=== PATIENT | male | born 1935 | race Two or more races ===

== ENCOUNTER 2017-04-26 11:32 | Inpatient (IN) | payer MEDICARE, MEDICAID ==
[~2017-04-26] VITALS: Ht 172.7 cm; Wt 77.1 kg
[2017-04-26] MEDS ORDERED: Famotidine 20 MG/ 2ML VIAL IVP ONE (11:45)
[2017-04-26 11:54] LABS: BASOPHILS % (AUTO) 1.5 % (0.0-2.0); EOSINOPHILS % (AUTO) 2.1 % (0.0-3.0); LYMPHOCYTES % (AUTO) 17.5 % (20.0-45.0); MEAN CORPUSCULAR HGB CONC 33.6 G/DL (32.0-36.0); MEAN CORPUSCULAR VOLUME 92 FL (80-99); MEAN PLATELET VOLUME 7.7 FL (6.5-10.1); PLATELET COUNT 238 K/UL (150-450); RED BLOOD COUNT 3.84 M/UL (4.70-6.10); RED CELL DISTRIBUTION WIDTH 12.6 % (11.6-14.8); WHITE BLOOD COUNT 5.9 K/UL (4.8-10.8)
[2017-04-26 12:10] LABS: ALANINE AMINOTRANSFERASE 10 U/L (3-41); ALBUMIN/GLOBULIN RATIO 1.3 (1.0-2.7); ANION GAP 14 (5-15); ASPARTATE AMINO TRANSFERASE 16 U/L (5-40); CALCIUM 8.7 mg/dL (8.6-10.2); CARBON DIOXIDE 22 mEQ/L (20-30); CHLORIDE 105 mEQ/L (98-107); CREATININE 1.1 mg/dL (0.7-1.2); HEMOLYSIS 2; LIPASE 15 U/L (< 60); POTASSIUM 3.7 mEQ/L (3.4-4.9); SODIUM 141 mEQ/L (135-145); TOTAL PROTEIN 6.5 g/dL (6.6-8.7); TROPONIN I < 0.30 ng/mL (<=0.30)
[2017-04-26 12:20] LABS: CKMB 3.4 ng/mL (< 6.7)
[2017-04-26 12:45] VITALS: BP 105/52
[2017-04-26] MEDS ORDERED: [UNRECOGNIZED DRUG - REMARK] (12:52)
[2017-04-26] MEDS ORDERED: [UNRECOGNIZED DRUG - REMARK] (12:52)
--- NOTE | 2017-04-26 12:54 | Diagnostic Imaging Report ---
Indication: Chest pain Technique: One view of the chest Comparison: none Findings: Lungs and pleural spaces are clear. Heart size is upper limits normal. Aorta is tortuous and calcified. 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 Consider sonography for better characterization
--- NOTE | 2017-04-26 13:57 | Emergency Room Report ---
History of Present Illness General Chief Complaint: Vomiting Source: EMS Present Illness HPI 81-year-old male presents ED for evaluation. EMS patient was found on bus bench vomiting. Patient states he has history of diabetes and to his medication today. Patient ate something and shortly after the vomiting started. Patient is bradycardic. Patient states he has history of high blood pressure and diabetes but does not know at medications he takes. Denies chest pain. Denies fevers chills. No other aggravating relieving factors. Denies any other systems symptoms Allergies: Coded Allergies: No Known Allergies (Unverified , 04/26/17) Patient History Past Medical History: DM Past Surgical History: none Pertinent Family History: none Social History: Denies: smoking, alcohol use, drug use Immunizations: UTD Reviewed Nursing Documentation: PMH: Agreed, PSxH: Agreed Nursing Documentation-PMH Hx Diabetes: Yes Review of Systems All Other Systems: negative except mentioned in HPI Physical Exam Vital Signs Date Time Temp Pulse Resp B/P (MAP) Pulse Ox O2 Delivery O2 Flow Rate FiO2 04/26/17 11:42 97.7 54 18 95/48 99 Room Air Sp02 EP Interpretation: reviewed, normal General Appearance: no apparent distress, alert, GCS 15, non-toxic Head: normocephalic, atraumatic Eyes: bilateral eye normal inspection, bilateral eye PERRL ENT: hearing grossly normal, normal pharynx, no angioedema, normal voice Neck: full range of motion, supple/symm/no masses Respiratory: chest non-tender, lungs clear, normal breath sounds, speaking full sentences Cardiovascular #1: no edema, bradycardia Cardiovascular #2: 2+ carotid (R), 2+ carotid (L), 2+ radial (R), 2+ radial (L) , 2+ dorsalis pedis (R), 2+ dorsalis pedis (L) Gastrointestinal: normal bowel sounds, non tender, soft, non-distended, no guarding, no rebound Rectal: deferred Genitourinary: normal inspection, no CVA tenderness Musculoskeletal: back normal, gait/station normal, normal range of motion, non- tender Neurologic: alert, oriented x3, responsive, motor strength/tone normal, sensory intact, speech normal Psychiatric: judgement/insight normal, memory normal, mood/affect normal, no suicidal/homicidal ideation Reflexes: 3+ bicep (R), 3+ bicep (L), 3+ tricep (R), 3+ tricep (L), 3+ knee (R) , 3+ knee (L) Skin: normal color, no rash, warm/dry, well hydrated Lymphatic: no adenopathy Medical Decision Making Diagnostic Impression: Primary Impression: Bradycardia Additional Impression: Vomiting Qualified Codes: R11.2 - Nausea with vomiting, unspecified ER Course Hospital Course 81-year-old male presents ED complaining of vomiting, bradycardia Differential diagnoses include: ME/unstable angina, arryhtmia, hyperkalemia Clinical course Patient placed on stretcher. on cardiac cath technician. After initial history and physical I ordered labs, EKG, chest x-ray, ivfs labs reviewed- no leukocytosis, hb/hct stable, electrolytes ok, trop negative EKG - 1st degree av block with bradycardia Chest x-ray- unremarkable On cardiac cath technician patient's heart rate went as low as the 40s. Patient doesnt know what medications he takes. Blood pressure remained stable Case discussed with Dr. Francis and he agreed to accept the patient to his service for further care and support I. I feel this is a highly complex case requiring extensive working including EKG/Rhythm strip, Xray/CT/US, Blood/urine lab work, repeat exams while in ED, and administration of strong opiates/narcotics for pain control, admission to hospital or close patient follow up. Diagnosis - bradycardia, vomtiing admitted to telemetry in serious condition Labs Test 04/26/17 11:40 White Blood Count 5.9 K/UL (4.8-10.8) Red Blood Count 3.84 M/UL (4.70-6.10) Hemoglobin 11.9 G/DL (14.2-18.0) Hematocrit 35.5 % (42.0-52.0) Mean Corpuscular Volume 92 FL (80-99) Mean Corpuscular Hemoglobin 31.0 PG (27.0-31.0) Mean Corpuscular Hemoglobin Concent 33.6 G/DL (32.0-36.0) Red Cell Distribution Width 12.6 % (11.6-14.8) Platelet Count 238 K/UL (150-450) Mean Platelet Volume 7.7 FL (6.5-10.1) Neutrophils (%) (Auto) 72.0 % (45.0-75.0) Lymphocytes (%) (Auto) 17.5 % (20.0-45.0) Monocytes (%) (Auto) 7.0 % (1.0-10.0) Eosinophils (%) (Auto) 2.1 % (0.0-3.0) Basophils (%) (Auto) 1.5 % (0.0-2.0) Sodium Level 141 mEQ/L (135-145) Potassium Level 3.7 mEQ/L (3.4-4.9) Chloride Level 105 mEQ/L (98-107) Carbon Dioxide Level 22 mEQ/L (20-30) Anion Gap 14 (5-15) Blood Urea Nitrogen 11 mg/dL (7-23) Creatinine 1.1 mg/dL (0.7-1.2) Estimat Glomerular Filtration Rate mL/min (>60) Glucose Level 256 mg/dL (74-106) Calcium Level 8.7 mg/dL (8.6-10.2) Total Bilirubin 0.6 mg/dL (0.0-1.2) Aspartate Amino Transf (AST/SGOT) 16 U/L (5-40) Alanine Aminotransferase (ALT/SGPT) 10 U/L (3-41) Alkaline Phosphatase 71 U/L (40-129) Total Creatine Kinase 106 U/L (38-174) Creatine Kinase MB 3.4 ng/mL (< 6.7) Creatine Kinase MB Relative Index 3.2 Troponin I < 0.30 ng/mL (<=0.30) Total Protein 6.5 g/dL (6.6-8.7) Albumin 3.7 g/dL (3.5-5.2) Globulin 2.8 g/dL Albumin/Globulin Ratio 1.3 (1.0-2.7) Lipase 15 U/L (< 60) EKG Diagnostic Results Rate: bradycardiac Rhythm: other - 1st degree av block ASA given to the pt in ED: No Rhythm Strip Diag. Results EP Interpretation: yes Rhythm: no PVC's, no ectopy Chest X-Ray Diagnostic Results Chest X-Ray Diagnostic Results : Chest X-Ray Ordered: Yes # of Views/Limited/Complete: 1 View Indication: Other - vomiting EP Interpretation: Yes Interpretation: no consolidation, no effusion, no pneumothorax, no acute cardiopulmonary disease Impression: No acute disease Interpreting ER Provider: Electronically signed by Collins You MD Last Vital Signs Date Time Temp Pulse Resp B/P (MAP) Pulse Ox O2 Delivery O2 Flow Rate FiO2 04/26/17 12:45 97.7 51 18 105/52 99 Room Air Status: improved Disposition: ADMITTED INPATIENT Condition: Serious Referrals: NOT CHOSEN IPA/,REFERRING (PCP) COLLINS YOU M.D. Apr 26, 2017 13:57
[2017-04-26 14:52] VITALS: BP 120/59
[2017-04-26] MEDS ORDERED: NKM (14:53)
--- NOTE | 2017-04-26 17:51 | History & Physical ---
History and Physical History & Physicial 81-year-old male presents for admission. patient was found on the bus bench altered and vomiting. Patient states he has history of diabetes but unclear if taking his medications. Patient also noted to be bradycardic. Patient states he has history of high blood pressure and diabetes but does not know his medications and dosing. No other aggravating relieving factors. Denies any other concerns. Patient without trauma. Allergies: No Known Allergies (Unverified , 04/26/17) Past Medical History: DM, hypertension Past Surgical History: none Pertinent Family History: none Social History: Denies: smoking, alcohol use, drug use, not currently working Reviewed of systems: otherwise negative Physical Exam 120/59 52 97.4 14 WDWN NAD clear breath sounds bilaterally without rhonchi or wheeze [id number] without MRG NABS nontender no HSM no CCE nonfocal Laboratory Tests Test 04/26/17 11:40 White Blood Count 5.9 K/UL (4.8-10.8) Red Blood Count 3.84 M/UL (4.70-6.10) L Hemoglobin 11.9 G/DL (14.2-18.0) L Hematocrit 35.5 % (42.0-52.0) L Mean Corpuscular Volume 92 FL (80-99) Mean Corpuscular Hemoglobin 31.0 PG (27.0-31.0) Mean Corpuscular Hemoglobin Concent 33.6 G/DL (32.0-36.0) Red Cell Distribution Width 12.6 % (11.6-14.8) Platelet Count 238 K/UL (150-450) Mean Platelet Volume 7.7 FL (6.5-10.1) Neutrophils (%) (Auto) 72.0 % (45.0-75.0) Lymphocytes (%) (Auto) 17.5 % (20.0-45.0) L Monocytes (%) (Auto) 7.0 % (1.0-10.0) Eosinophils (%) (Auto) 2.1 % (0.0-3.0) Basophils (%) (Auto) 1.5 % (0.0-2.0) Sodium Level 141 mEQ/L (135-145) Potassium Level 3.7 mEQ/L (3.4-4.9) Chloride Level 105 mEQ/L (98-107) Carbon Dioxide Level 22 mEQ/L (20-30) Anion Gap 14 (5-15) Blood Urea Nitrogen 11 mg/dL (7-23) Creatinine 1.1 mg/dL (0.7-1.2) Estimat Glomerular Filtration Rate mL/min (>60) Glucose Level 256 mg/dL (74-106) H Calcium Level 8.7 mg/dL (8.6-10.2) Total Bilirubin 0.6 mg/dL (0.0-1.2) Aspartate Amino Transf (AST/SGOT) 16 U/L (5-40) Alanine Aminotransferase (ALT/SGPT) 10 U/L (3-41) Alkaline Phosphatase 71 U/L (40-129) Total Creatine Kinase 106 U/L (38-174) Creatine Kinase MB 3.4 ng/mL (< 6.7) Creatine Kinase MB Relative Index 3.2 Troponin I < 0.30 ng/mL (<=0.30) Total Protein 6.5 g/dL (6.6-8.7) L Albumin 3.7 g/dL (3.5-5.2) Globulin 2.8 g/dL Albumin/Globulin Ratio 1.3 (1.0-2.7) Lipase 15 U/L (< 60) IMPRESSION Dizziness bradycardia possible cardiomyopathy possible cardiac disease vomiting possible gastroenteritis diabetes possible gastroparesis PLAN IV hydration zofran sliding scale follow up labs, ecg, echo gi evaluation PT evaluation impression, plan, and exam edited and reviewed in detail care discussed with JASE LLAMAS Apr 26, 2017 17:51
[2017-04-26 20:02] VITALS: BP 142/74
[2017-04-26] MEDS: NovoLOG Insulin Flexpen SUBQ SCH (20:52)
[2017-04-26] MEDS ORDERED: Zolpidem 5mg tab ORAL PRN (21:00)
[2017-04-26] MEDS ORDERED: Heparin 5000 units/ml inj SUBQ SCH (21:00)
[2017-04-27 00:35] VITALS: BP 144/61
[2017-04-27 04:00] VITALS: BP 140/65
[2017-04-27] MEDS: NovoLOG Insulin Flexpen SUBQ SCH ×4 (06:36→21:12)
[2017-04-27 07:48] LABS: BASOPHILS % (AUTO) 0.9 % (0.0-2.0); EOSINOPHILS % (AUTO) 2.7 % (0.0-3.0); LYMPHOCYTES % (AUTO) 24.9 % (20.0-45.0); MEAN CORPUSCULAR HEMOGLOBIN 29.5 PG (27.0-31.0); MEAN CORPUSCULAR HGB CONC 31.8 G/DL (32.0-36.0); MEAN CORPUSCULAR VOLUME 93 FL (80-99); MEAN PLATELET VOLUME 7.7 FL (6.5-10.1); MONOCYTES % (AUTO) 7.3 % (1.0-10.0); NEUTROPHILS % (AUTO) 64.1 % (45.0-75.0); PLATELET COUNT 227 K/UL (150-450); RED BLOOD COUNT 4.54 M/UL (4.70-6.10); RED CELL DISTRIBUTION WIDTH 12.7 % (11.6-14.8); WHITE BLOOD COUNT 5.7 K/UL (4.8-10.8)
[2017-04-27 08:07] LABS: ANION GAP 12 (5-15); CALCIUM 9.2 mg/dL (8.6-10.2); CARBON DIOXIDE 24 mEQ/L (20-30); CHLORIDE 109 mEQ/L (98-107); CREATININE 0.9 mg/dL (0.7-1.2); HEMOLYSIS 5; POTASSIUM 3.7 mEQ/L (3.4-4.9); SODIUM 145 mEQ/L (135-145)
[2017-04-27 08:39] VITALS: BP 138/55
[2017-04-27 09:45] LABS: APPEARANCE,URINE SLIGHTLY CLOUDY; KETONES,URINE NEGATIVE (NEGATIVE); LEUKOCYTE ESTERASE ,URINE 1+ (NEGATIVE); NITRITE,URINE NEGATIVE (NEGATIVE); PH,URINE 8 (4.5-8.0); PROTEIN,URINE NEGATIVE (NEGATIVE); UROBILINOGEN,URINE NORMAL MG/DL (0.0-1.0)
[2017-04-27 10:02] LABS: BACTERIA,URINE FEW /HPF; RBC,URINE 60-80 /HPF (0 - 0); SQUAMOUS EPITHELIAL CELL,UR OCCASIONAL /LPF (NONE/OCC); WBC,URINE 0-2 /HPF (0 - 0)
[2017-04-27 12:00] VITALS: BP 136/77
--- NOTE | 2017-04-27 12:24 | General Progress Note ---
Assessment/Plan Assessment/Plan IMPRESSION Dizziness bradycardia possible cardiomyopathy possible cardiac disease vomiting possible gastroenteritis diabetes possible gastroparesis PLAN IV hydration zofran sliding scale follow up labs, ecg, echo gi evaluation called PT evaluation dc planning in am if stable impression, plan, and exam edited and reviewed in detail care discussed with RN Subjective Allergies: Coded Allergies: No Known Allergies (Unverified , 04/26/17) Subjective care noted and reviewed stable no distress Objective Last 24 Hour Vital Signs Date Time Temp Pulse Resp B/P (MAP) Pulse Ox O2 Delivery O2 Flow Rate FiO2 04/27/17 08:39 98.1 60 20 138/55 100 Room Air 04/27/17 08:00 58 04/27/17 04:00 52 04/27/17 04:00 97.0 53 21 140/65 98 Room Air 04/27/17 00:35 97.5 53 20 144/61 99 Room Air 04/27/17 00:00 51 04/26/17 20:02 97.9 56 18 142/74 100 Room Air 04/26/17 20:00 52 04/26/17 16:00 55 04/26/17 15:01 97.7 52 17 120/59 100 Room Air 04/26/17 14:52 97.7 52 17 120/59 100 Room Air 04/26/17 12:45 97.7 51 18 105/52 99 Room Air Intake and Output 04/27/17 04/28/17 19:00 07:00 Output Total 220 ml Balance -220 ml Output Urine Total 220 ml Laboratory Tests 04/27/17 07:20: White Blood Count 5.7, Red Blood Count 4.54L, Hemoglobin 13.4L, Hematocrit 42.1 , Mean Corpuscular Volume 93, Mean Corpuscular Hemoglobin 29.5, Mean Corpuscular Hemoglobin Concent 31.8L, Red Cell Distribution Width 12.7, Platelet Count 227, Mean Platelet Volume 7.7, Neutrophils (%) (Auto) 64.1, Lymphocytes (%) (Auto) 24.9, Monocytes (%) (Auto) 7.3, Eosinophils (%) (Auto) 2.7, Basophils (%) (Auto) 0.9, Sodium Level 145, Potassium Level 3.7, Chloride Level 109H, Carbon Dioxide Level 24, Anion Gap 12, Blood Urea Nitrogen 12, Creatinine 0.9, Estimat Glomerular Filtration Rate , Glucose Level 164H, Calcium Level 9.2 04/27/17 09:14: Urine Color Red, Urine Appearance Slightly cloudy, Urine pH 8, Urine Specific [place] 1.010, Urine Protein Negative, Urine Glucose (UA) 1+H, Urine Ketones Negative, Urine Occult Blood 5+H, Urine Nitrite Negative, Urine Bilirubin Negative, Urine Urobilinogen Normal, Urine Leukocyte Esterase 1+H, Urine RBC 60- 80H, Urine WBC 0-2, Urine Squamous Epithelial Cells Occasional, Urine Bacteria Few Height (Feet): 5 Height (Inches): 8.00 Weight (Pounds): 170 Objective WDWN NAD clear breath sounds bilaterally without rhonchi or wheeze [id number] mildly bradycardic without MRG NABS nontender no HSM no CCE nonfocal JASE ROE Apr 27, 2017 12:24
[2017-04-27 16:12] VITALS: BP 154/65
[2017-04-27 20:13] VITALS: BP 156/76
[2017-04-28 00:15] VITALS: BP 149/76
[2017-04-28 04:30] VITALS: BP 147/87
[2017-04-28] MEDS: NovoLOG Insulin Flexpen SUBQ SCH ×2 (06:25→12:29)
[2017-04-28 08:40] VITALS: BP 174/83
--- NOTE | 2017-04-28 10:21 | General Progress Note ---
Assessment/Plan Assessment/Plan IMPRESSION Dizziness bradycardia possible cardiomyopathy possible cardiac disease vomiting possible gastroenteritis diabetes possible gastroparesis PLAN IV hydration- may dc zofran sliding scale follow up labs, ecg, echo gi evaluation called PT evaluation hold beta zack hydralazine if BP better, dc planning in am impression, plan, and exam edited and reviewed in detail care discussed with RN Subjective Allergies: Coded Allergies: No Known Allergies (Unverified , 04/26/17) Subjective care noted and reviewed stable no distress BP elevated off atenolol with improvement in HR Objective Last 24 Hour Vital Signs Date Time Temp Pulse Resp B/P (MAP) Pulse Ox O2 Delivery O2 Flow Rate FiO2 04/28/17 08:40 97.2 78 18 174/83 100 Room Air 04/28/17 08:00 65 04/28/17 04:30 97.0 59 20 147/87 100 Room Air 04/28/17 04:00 53 04/28/17 00:15 98.0 56 20 149/76 98 Room Air 04/28/17 00:00 54 04/27/17 20:13 97.0 54 20 156/76 99 Room Air 04/27/17 20:00 54 04/27/17 16:12 98.1 58 21 154/65 100 Room Air 04/27/17 16:00 52 04/27/17 12:00 97.7 54 21 136/77 99 Room Air 04/27/17 12:00 52 Intake and Output 04/28/17 04/29/17 19:00 07:00 Intake Total 220 ml Output Total 200 ml Balance 20 ml Intake Oral 120 ml IV Total 100 ml Output Urine Total 200 ml Height (Feet): 5 Height (Inches): 8.00 Weight (Pounds): 170 Objective WDWN NAD clear breath sounds bilaterally without rhonchi or wheeze [id number] without MRG NABS nontender no HSM no CCE nonfocal JASE ROE Apr 28, 2017 10:21
[2017-04-28] MEDS ORDERED: HydrALAZINE 50mg tab ORAL SCH (11:00)
[2017-04-28 11:47] VITALS: BP 148/76
[2017-04-28 15:40] VITALS: BP 146/75
[2017-04-28] MEDS ORDERED: APRESOLINE50 MG ORAL (15:53)
--- NOTE | 2017-04-29 05:45 | Progress Note ---
DATE: 04/28/2017 CARDIOLOGY PROGRESS NOTE SUBJECTIVE: The patient feels weak, sometimes dizzy. OBJECTIVE: VITAL SIGNS: Have revealed slow heart rate. Monitored rhythm. Sinus bradycardia. No chest pain. Blood pressure 174/83, pulse 78, and respirations 18. Afebrile. NECK: Supple. LUNGS: Clear. CARDIAC: Regular. Slow S1 and S2. No new murmur. ABDOMEN: Soft and nontender. EXTREMITIES: No edema. IMPRESSION: 1. Hypertensive heart disease with elevated blood pressure. 2. Bradycardia, on beta-zack therapy. 3. Hypertensive heart disease. 4. Diabetes mellitus. PLAN: 1. Agree with discontinuation of beta-zack therapy. 2. Titrate hydralazine for optimal blood pressure control. 3. Monitor orthostatics. 4. Physical and occupational therapy evaluations in anticipation of discharge. 5. Maintain anti-platelet drugs. Maciel Melara M.D. DR: ENMANUEL JOB#: [id number] CC:
--- NOTE | 2017-04-29 06:15 | Consultation ---
DATE OF CONSULTATION: 04/27/2017 CARDIOLOGY CONSULTATION REQUESTING PHYSICIAN: Hector Francis M.D. REASON FOR CONSULTATION: Bradycardia and uncontrolled blood pressure. HISTORY OF PRESENT ILLNESS: This is an 81-year-old male. He was noted to be on a bus bench feeling weak, lightheaded, and vomiting. He was brought to the emergency room. The patient apparently had not taken his medications for diabetes. Yesterday the day of admission, he was also noted to have a slow heart rate in the emergency room and elevated blood pressure reading. No chest pain or shortness of breath was noted. PAST MEDICAL HISTORY: Diabetes mellitus. ALLERGIES: None. FAMILY HISTORY: Noncontributory. SOCIAL HISTORY: Negative for smoking, alcohol, or substance abuse. MEDICATIONS: Reviewed and reconciled. REVIEW OF SYSTEMS: A 10-point review of systems performed. Pertinent data outlined above. Otherwise, all systems negative. PHYSICAL EXAMINATION: VITAL SIGNS: Blood pressure 156/76, pulse 54, and respiratory rate 20. Afebrile. HEENT: Conjunctivae are pink. Oropharynx clear. NECK: Supple. No jugular venous distention. Carotid upstrokes without delay. No carotid sinus hypersensitivity. LUNGS: Clear. CARDIAC: Regular rhythm. Slow rate. Normal S1, S2 with a fourth heart sound. ABDOMEN: Soft. EXTREMITIES: No edema. EKG: Sinus bradycardia, first-degree AV block. Troponin negative. IMPRESSION: 1. Bradycardia likely due to increased vagal tone in the setting of nausea and vomiting. Exacerbation due to beta-zack therapy noted as well. 2. Labile hypertension/hypertensive urgency. 3. Diabetes mellitus type 2. 4. Hypovolemia. 5. Dehydration. PLAN: 1. Intravenous fluids. 2. Insulin coverage by sliding scale. 3. Discontinue beta-zack. 4. Hold antihypertensives other than as needed therapy for blood pressure spikes until rehydrated. 5. Gastrointestinal workup per primary care physician may include abdominal ultrasound. We will follow with you during this hospital course. Maciel Melara M.D. DR: JUAN JOB#: [id number] CC:
--- NOTE | 2017-04-29 16:45 | Cardiology Report ---
APPROVED REPORT EKG Measurement Heart [id number] Sinus rhythm with sinus arrhythmia with 1st degree AV block Anterior infarct, age undetermined Abnormal ECG
--- NOTE | 2017-04-29 16:49 | Cardiology Report ---
APPROVED REPORT EKG Measurement Heart [id number] [place] [id number] [id number] Sinus bradycardia with 1st degree AV block Otherwise normal ECG
--- NOTE | 2017-04-30 12:58 | Discharge Summary ---
Discharge Summary Hospital Course Date of Admission Apr 26, 2017 at 13:23 Date of Discharge Apr 28, 2017 at 17:24 Admitting Diagnosis Bradycardia, vomiting HPI Mendoza Major is a 81 year old male who was admitted on Apr 26, 2017 at 13:23 for Bradycardia,Vomiting Hospital Course [id number] Discharge Discharge Disposition Patient was discharged to Home (01) Discharge Diagnoses: Lyssa Townsend NP Apr 30, 2017 12:58
--- NOTE | 2017-05-01 03:15 | Discharge Summary 2 SIG ---
DATE OF ADMISSION: 04/26/2017 DATE OF DISCHARGE: 04/28/2017 DIRECTOR OF PHYSICAL SECURITY: Maciel Melara M.D. BRIEF HOSPITAL COURSE: The patient is an 81-year-old male, who was found on the bus bench altered and was vomiting. The patient has history of diabetes and unclear if he was taking his medications. On evaluation at ED, the patient was noted to be bradycardic. EKG showed first-degree AV block with bradycardia. Chest x-ray showed no acute cardiopulmonary disease. Blood work was stable. Troponin was negative. He continued to have a low heart rate and went as slow as 40s. He was then admitted to telemetry for evaluation of bradycardia, dizziness and cardiac disease. He was given IV hydration and was given Zofran for vomiting. Blood sugar was checked and was given sliding scale of Humalog. He underwent cardiac evaluation with Dr. Melara. In the emergency room, the patient had elevated blood pressure readings and apparently had been weak, lightheaded, and vomiting. Beta-zack was discontinued. The patient had bradycardia likely due to increased vagal tone in the setting of nausea and vomiting and could be due to beta-zack. He was given hydralazine for blood pressure control. Heart rate improved. He was given proton pump inhibitors and underwent physical therapy evaluation. He was eventually discharged to home. FINAL DIAGNOSES: 1. Hypertensive heart disease with elevated blood pressure. 2. Bradycardia. 3. Diabetes mellitus. 4. Possible cardiomyopathy. 5. Possible gastroenteritis. 6. Possible gastroparesis. DISPOSITION: The patient was discharged home. DISCHARGE MEDICATIONS: Refer to medication list. FOLLOWUP: The patient was advised to follow up with PMD in a week. ACTIVITY: As tolerated. Hector Francis M.D. I have been assigned to dictate discharge summary on this account and I was not involved in the patient's management. Lyssa Townsend N.P. DR: ARETHA JOB#: [id number] CC: OBINNA
== END 2017-04-28 17:24 | disposition home or self-care (01) | DRG 305 ==
LOC: EDBD 11:32 → EMR 12:16 → EDBEDREQ 12:17 → EDBEDREQSVC 12:17 → 2E 13:23 → EDBEDREQ 14:05
DX: I11.9 Hypertensive heart disease without heart failure (principal); I42.9 Cardiomyopathy, unspecified; I16.0 Hypertensive urgency; R00.1 Bradycardia, unspecified; E11.9 Type 2 diabetes mellitus without complications; R42 Dizziness and giddiness; I44.0 Atrioventricular block, first degree; K31.84 Gastroparesis; K52.9 Noninfective gastroenteritis and colitis, unspecified
CPT/HCPCS: 36415; 51701; 71010; 80048; 80053; 81001; 82550; 82553; 82962; 83690; 84484; 85025; 93005; 99285; J1815; J2405